=== PATIENT | female | born 1950 | race Caucasian/White ===

== ENCOUNTER 2023-07-27 06:00 | Day surgery (SDC) | payer MEDICARE, OTHER, SELFPAY ==
--- NOTE | 2023-06-23 10:07 | CM ---
Patient is scheduled for an elective L TKR on 07/27/23- she is a same day patient. Spoke with patient prior to surgery. Introduced role of Orthopedic Navigator. Patient reports that she lives with her in a two story home. There are two steps
to enter and a flight of steps to the second floor. She currently functions independently. She has a cane and rolling walker. She has never had [facility] services. PCP is Hay Smith.
Discussed orthopedic program and post surgical plans. Reviewed that she will have VN services initially (medicare.gov website and ratings reviewed) and will then start outpatient PT. Patient selects [facility] (face sheet faxed to [facility] to facilitate
confirmation of benefits) for her home care needs and will go to [facility] for outpatient PT.
Patient is in agreement with plan and states that her will be home with her.
Patient will complete online education.
Plan: Orthopedic Navigator will remain available to assist with the care of patient and will reassess discharge needs after surgery.
[2023-07-06 12:31] VITALS: BMI 28.8
[2023-07-06 13:49] LABS: Hematocrit 40.8 % (37.0-47.0); Hemoglobin 13.7 g/dL (12.0-16.0); Mean Corp Hgb Conc. 33.6 g/dL (33.0-37.0); Mean Corpuscular Hgb 29.8 pg (27.0-31.0); Mean Corpuscular Volume 88.9 fL (81.0-99.0); Mean Platelet Volume 10.8 fL (7.4-10.4); Platelet Count 142 10^3/uL (130-400); Red Blood Cell Count 4.59 10^6/uL (4.20-5.40); Red Cell Dist. Width 12.8 % (11.5-14.5); White Blood Cell Count 5.3 10^3/uL (4.8-10.8)
[2023-07-06 14:19] LABS: ALT (SGPT) 26 U/L (0-35); AST (SGOT) 32 U/L (14-36); Albumin 4.2 g/dl (3.5-5.0); Alkaline Phosphatase 62 U/L (38-126); Blood Urea Nitrogen 22 mg/dl (7-17); Carbon Dioxide 27 mmol/L (22-30); Chloride 104 mmol/L (98-107); Estimated Creatinine Clearance 59 ml/min; Glucose 86 mg/dl (70-99); Potassium 4.3 mmol/L (3.5-5.1); Sodium 135 mmol/L (135-145); Total Bilirubin 1.9 mg/dl (0.2-1.3); Total Protein 6.9 g/dl (6.3-8.2); eGFR > 60.00
[2023-07-06 14:29] LABS: Glycohemoglobin (HgbA1c) 5.7 % (4.0-5.6)
--- NOTE | 2023-07-06 14:32 | W.PN.UPDATE ---
Update Note
Progress Note Update
BP check with both electric and manual cuff-systolic 190s-205/diastolic 90s--advised ER and explained stroke risk. She refuses ER. Upon questioning, she was seeing a deputy coroner investigator for uncontrolled HTN, but hasn't seen in about 10 years. She also
has Diovan at home which is likely . She states that her BP is labile and was becoming too low when on an antihypertensive.
--Have Rx Lisinopril 5mg bid with parameter. She will be set up with cardiology due to this and possible abnormal EKG vs soft tissue attenuation (anterior lead abnormality)
-
[2023-07-06 15:05] VITALS: BMI 28.8
[2023-07-27] VITALS (16 sets, daily range): BP systolic 116–189; BP diastolic 70–123; PULSE 85; O2SAT 94; BMI 28.8
[2023-07-27] MEDS: NORMOSOL-R 1000 IV (06:27)
[2023-07-27] MEDS: CELEBREX 200 MG PO (06:27)
[2023-07-27] MEDS: TYLENOL 650 MG PO (06:27)
--- NOTE | 2023-07-27 06:53 | W.DS.TRANS ---
DC Summary - [employer]
-
Discharge Instructions:
Sleep Apnea Risk Low
Discharge Diagnosis/Procedures O/A L TKA Dr. De La Rosa 07/27/23
Diet As tolerated
Activity With Walker
Driving Restrictions No driving
Bathing Restrictions OK to Shower
Other Services PT,[facility]
Instructions:
Stand-Alone Forms: SDS Total Hip and Knee D/C
Changes to Home Medications: Yes
Discharge Medications:
DC Medications w/original date entered in [facility]
[place] 3 Fish Oil 1,600 mg PO NOON 07/02/23
ibuprofen 200 mg tablet (Advil) 200 mg PO Q6H PRN pain 07/02/23
skvjxkyz-bjuf-pgin 8 mg-folic 400 mcg-K 50 mcg-lutein 300 mcg tablet (Centrum Silver Women) 1 tab PO NOON 07/02/23
resveratrol 50 mg capsule 50 mg PO NOON 07/02/23
dexamethasone 4 mg tablet 4 mg PO BID inflammation #6 tabs 07/06/23
famotidine 20 mg tablet 20 mg PO HS GI prophylaxis #30 tabs 07/06/23
gabapentin 300 mg capsule 300 mg PO HS sleep/pain #10 caps 07/06/23
lisinopril 5 mg tablet 10 mg PO BID #60 tabs 07/06/23
meloxicam 15 mg tablet 15 mg PO DAILY anti-inflammatory #14 tabs 07/06/23
mupirocin 2 % topical ointment 1 applic topical BID infection prevention #1 tube 07/06/23
ondansetron 4 mg disintegrating tablet 4 mg PO Q6H PRN n/v #20 tabs 07/06/23
oxycodone 5 mg tablet 5 - 10 mg PO Q6HPRN PRN 1 tab moderate-2 tabs severe pain #30 tabs 07/06/23
acetaminophen 325 mg capsule (Tylenol) 650 mg PO QID #2 caps 07/27/23
aspirin 325 mg tablet 325 mg PO DAILY blood clot prevention #1 tab 07/27/23
docusate sodium 100 mg capsule (Colace) 100 mg PO BID stool softner #1 cap 07/27/23
magnesium hydroxide 400 mg/5 mL oral suspension (Milk of Magnesia) 30 ml PO HS PRN Constipation #1 mL 07/27/23
sennosides 8.6 mg tablet (Senokot) 17.2 mg PO BID laxative #2 tabs 07/27/23
Home Medication Changes
dexamethasone 4 mg tablet 4 mg PO BID inflammation #6 tabs 07/06/23
famotidine 20 mg tablet 20 mg PO HS GI prophylaxis #30 tabs 07/06/23
gabapentin 300 mg capsule 300 mg PO HS sleep/pain #10 caps 07/06/23
lisinopril 5 mg tablet 10 mg PO BID #60 tabs 07/06/23
meloxicam 15 mg tablet 15 mg PO DAILY anti-inflammatory #14 tabs 07/06/23
mupirocin 2 % topical ointment 1 applic topical BID infection prevention #1 tube 07/06/23
ondansetron 4 mg disintegrating tablet 4 mg PO Q6H PRN n/v #20 tabs 07/06/23
oxycodone 5 mg tablet 5 - 10 mg PO Q6HPRN PRN 1 tab moderate-2 tabs severe pain #30 tabs 07/06/23
Pending Results: No
[2023-07-27] MEDS: ZOFRAN 4 MG IV (09:30)
--- NOTE | 2023-07-27 10:52 | PTCARENOTE ---
Patient OOB to the commode. Patient voided and got back into bed. Patient was dizzy at the end of sitting up and layed back in bed. BP 147/88. Patient getting IV fluids. Resting comfortably in bed. Will monitor patient.
--- NOTE | 2023-07-27 10:53 | CM ---
Patient had planned L TKR today. Met with patient and her at bedside to review discharge plans. Patient will be returning home today with services through [facility]N. On , , patient will start outpatient PT at [facility]. Reviewed MD
follow up in two weeks and patient has already scheduled her appointment.
Patient has her rolling walker here with her.
PT and VN were kept updated as to progress and discharge plans.
[2023-07-27] MEDS: ANCEF 5 IV (11:19)
--- NOTE | 2023-07-27 12:57 | PTCARENOTE ---
Patients BP with PT post was elevated at 186/114. Dr. Parks notified and orders for 5 mg of IV Hydralazine. Will recheck BP 15 minutes after dose if IV hydralazine.
[2023-07-27] MEDS: APRESOLINE 5 MG IV (13:02)
== END 2023-07-27 13:40 | disposition home health service (06) ==
LOC: SDS 06:00
PROVIDERS: ATTENDING PHYSICIAN Specialist; FAMILY PHYSICIAN Family Medicine; OTHER PHYSICIAN Physician Assistant Medical
DX: M17.12 Unilateral primary osteoarthritis, left knee (principal); I10 Essential (primary) hypertension
CPT/HCPCS: 27447; 36415; 73560; 80053; 83036; 85027; 87070; 93005; 97116; 97161; C1713; C1776